=== PATIENT | male | born 1940 | race Caucasian/White ===

== ENCOUNTER 2023-06-09 09:12 | Inpatient (IN) | payer MEDICARE, OTHER ==
[~2023-06-09] VITALS: Ht 177.8 cm; Wt 83.6 kg
[2023-06-09 09:48] LABS: EOSINOPHILS 0.5 % (0-6); HEMATOCRIT 53.4 % (35.0-50.0); HEMOGLOBIN 17.8 g/dL (12.0-18.0); LYMPHOCYTES 4.3 % (24-44); MCH 31.9 (27-36); MCHC 33.3 g/dl (30-36); MCV 95.7 fl (81-99); MONOCYTES 5.3 % (0-12); NEUTROPHILS 89.9 % (39-80); PLATELET COUNT 145 K/uL (140-440); RBC 5.58 M/ul (4.3-5.7); RDW 15.8 (10.5-15.0)
[2023-06-09 10:22] LABS: ALBUMIN 1.7 g/dL (3.4-5.0); ALBUMIN/GLOBULIN RATIO 0.49 (1.1-2.4); ANION GAP 11.1 (7-21); BILIRUBIN, TOTAL 1.5 ng/dL (0.2-1.0); BUN/CREATININE RATIO 18.69 (6.0-28.6); CALCIUM 8.2 mg/dL (8.5-10.1); CREATININE, SERUM 1.23 mg/dL (0.70-1.30); POTASSIUM 4.1 mmol/L (3.5-5.1); PROTEIN, TOTAL 5.2 g/dL (6.4-8.2)
[2023-06-09] MEDS ORDERED: FUROSEMIDE 100 MG/10 ML VIAL IV ONE (11:15)
--- OUTSIDE RECORDS SUMMARY | 2023-06-09 11:16 | XMS ---
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 Elaine VISIT COUNT (12 MO.) [address] TOTAL 3 NOTE: Visits indicate total known visits. ED/UCC VISIT TRACKING (12 MO.) 06/09/2023 09:14 [facility] [place] TYPE: Emergency COMPLAINT: - SWOLLEN/WEEPING LEGS, MULTIPLE COMPLAINTS [facility] DIAGNOSES: - COVID-19 - cough 05/13/2023 13:[facility] [place] [facility] DIAGNOSES: - Heart failure, unspecified - Shortness of Breath - trouble breathing INPATIENT VISIT TRACKING (12 MO.) No inpatient visits to display in this time frame [email or web address]
[2023-06-09 11:42] LABS: BILIRUBIN, URINE POSITIVE (negative); BLOOD/HGB, URINE LARGE (Negative); KETONE, URINE NEGATIVE (Negative); LEUK ESTERASE, URINE TRACE (negative); NITRITE, URINE NEGATIVE (negative)
[2023-06-09 11:48] LABS: BACTERIA, URINE 4+ /hpf (negative); RED BLOOD CELLS, URINE 21-40 /hpf (0-5)
[2023-06-09 11:49] LABS: CASTS, URINE NONE SEEN \\lpf; CRYSTALS, URINE NONE SEEN (0-1+); EPITHELIAL CELLS, URINE SQUAMOUS 1+ /lpf (0-1+); WHITE BLOOD CELLS, URINE >50 /HPF (0-5)
[2023-06-09 11:50] LABS: COLLECTION TYPE, URINE CLEAN CATCH; REFLEX CULTURE, URINE Yes (No)
[2023-06-09] MEDS ORDERED: CEFTRIAXONE/SODIUM CHLORIDE 2 GM/100 ML PIGGYBACK IV ONE (12:15)
[2023-06-09 12:50] LABS: INFLUENZA B NAA NEGATIVE (NEGATIVE); RESPIRATORY SYNCYTIAL VIR NAA NEGATIVE (NEGATIVE)
[2023-06-09] MEDS ORDERED: ACETAMINOPHEN 325 MG TAB PO PRN (13:15)
[2023-06-09] MEDS ORDERED: ondansetron HCL 4 MG/2 ML VIAL IV PRN (13:15)
[2023-06-09] MEDS ORDERED: FUROSEMIDE40 MG PO (13:54)
[2023-06-09] MEDS ORDERED: POTASSIUM CHLO10 ME2 PO (13:54)
[2023-06-09] MEDS ORDERED: LOSARTAN POTASS25 MG PO (13:54)
[2023-06-09] MEDS ORDERED: ELIQUIS2.5 MG PO (13:54)
[2023-06-09 14:10] VITALS: BP 133/78
[2023-06-09] MEDS ORDERED: CITALOPRAM HBR10 MG PO (14:26)
[2023-06-09] MEDS ORDERED: LABETALOL HCL100 MG PO (14:28)
--- NOTE | 2023-06-09 14:33 | NUR ---
PT TO FLOOR WITH THIS RN AND FAMILY. SON IN LAW AND . 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 PT ABLE TO ANSWER SOME QUESTIONS BUT ANSWERED MOST DUE TO HEARING. 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 BED ALARM ON. DENIES WANTING FOOD, GIVEN ICE WATER. HAS SIGNIFICNT SORES IN MOUTH AND WOULD LIKE TO TRY MAGIC MOUTH WASH. ALERTED DR COOPER.
[2023-06-09] MEDS ORDERED: MAALOX/DIPHENHYDRAMINE/LIDOCAINE 1:1:1 BY VOLUME SUSP PO PRN (15:00)
--- NOTE | 2023-06-09 15:24 | NUR ---
PATIENT ALERT AND ORIENTED SITTING UP IN BED, DIFFICULTY HEARING. VERIFIED DEMOGRAPHICS WITH PATIENT. LIVES IN HOUSE WITH . HAS STAIRS THAT ARE "MORE DIFFICULTY THAN THEY USED TO BE, BUT WE MANAGE." STATES HE HAS A WALKER AND SHOWER CHAIR, BUT DOES NOT ALWAYS USE SHOWER CHAIR. STATES HE HAS NO OTHER DME. CONTINUES TO DRIVES SELF, THOUGH TRIES NOT TO DRIVE OFTEN. STATES HE HAS NO FINANCIAL ISSUES, NO ISSUES OBTAINING FOOD OR MEDICATIONS EITHER. DENIES NEEDS AT HOME AT THIS TIME. CALL LIGHT IN REACH. INSTRUCTED TO NOTIFY STAFF IF NEEDS ARISE. VERBALIZES UNDERSTANDING.
--- NOTE | 2023-06-09 16:03 | NUR ---
CHANGED PT DEPENDS WITH HELP OF CHRISTINA ISABEL. PT STOOD AT SIDE OF BED WITH FWW AND ASSISTANCE. CHANGED OUT CHUCKS ON BED THEY WERE WET TOO.
[2023-06-09] MEDS ORDERED: GLUCAGON,HUMAN RECOMBINANT 1 MG/ML VIAL SUB-Q PRN (16:15)
[2023-06-09] MEDS ORDERED: DEXTROSE 5% 1,000 ML IV PRN (16:15)
[2023-06-09] MEDS ORDERED: IBLOOD GLUCOSE TEST STRIP 1 EA TEST XX PRN (16:15)
[2023-06-09] MEDS ORDERED: DEXTROSE 50% 50 ML SYR IV PRN ×2 (16:15)
[2023-06-09] MEDS ORDERED: DAPTOmycin 500 MG/10 ML VIAL IV SCH (16:30)
[2023-06-09] MEDS ORDERED: IBLOOD GLUCOSE TEST STRIP 1 EA TEST VI SCH (17:00)
[2023-06-09] MEDS ORDERED: INSULIN LISPRO 100 UNIT/ML ML SUB-Q SCH (17:00)
--- NOTE | 2023-06-09 17:12 | NUR ---
PT WET THROUGH BEDDING AGAIN. CNAS CHANGING. ADMINISTERED SCHEDULED MEDS INCLUDING MAGIC MOUTH WASH.
[2023-06-09] MEDS ORDERED: ZINC OXIDE/GELATIN/GELATIN 1 BANDAGE BANDAGE TOP ONE (17:30)
[2023-06-09 17:47] VITALS: BP 117/68
--- NOTE | 2023-06-09 18:00 | NUR ---
Gave Pt refill of fresh water at 200 ml under fluid restriction. Gave Pt warm blanket. No other needs expressed by Pt.
[2023-06-09 20:49] VITALS: BP 133/84
[2023-06-09] MEDS ORDERED: MELATONIN 3 MG TAB PO PRN (21:00)
[2023-06-09] MEDS ORDERED: APIXABAN 2.5 MG TAB PO SCH (21:00)
--- NOTE | 2023-06-09 21:20 | NUR ---
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 abd soft. multiple bruising R arm and L arm, scratches arms, back and LE. Redness R back lower leg, edema 4+ ankle and 3+ hip down. scabbed areas in place, no dressing. L foot dressing in place, Dr Gibbs was here at change of shift, and dressing was completed. SL RAC, patent. tolerating liquids well, uses urinal. tele#[address], afib. denies CP. in room
[2023-06-09] MEDS ORDERED: PIPERACILLIN/TAZOBACTAM 3.375 GM in DEXTROSE 5% 100 ML IV SCH (22:00)
[2023-06-10] VITALS (9 sets, daily range): BP systolic 103–151; BP diastolic 58–96
--- NOTE | 2023-06-10 00:06 | NUR ---
FOOT CRADDLE PLACED IN PLACE, PT TEACAHING DONE, COOPERATATIVE, RECEPTIVE, NO QUESTIONS ASKED
--- NOTE | 2023-06-10 00:36 | NUR ---
RESTING, AWAKES EASILY, IV ABX INFUSING W/O PROBLEMS. FOOT CRADDLE IN PLACE
--- NOTE | 2023-06-10 02:00 | NUR ---
Pt used call light, up to bsc, voided and had small formed brown bm. Does own melly care. no c/o pain, or n/v. Independent from bed to BSC. IVF infusing w/o problems, no c/o adverse reaction to abx. SCD's in place. LE elevated. goes back to bed right away. fluids at bedside
--- NOTE | 2023-06-10 02:38 | NUR ---
on room air, fiddleing with tele, instructions to not to given, stated understanding. tele#[address], SVR to a fib. denies CP. continues to have moist non productive cough. lungs crackles at bases otherwise clear. tolerating fluid restrictions. Was incontinent of large amount of urine, attends changed, reash perineum and gluteal cleft noted, barrier cream applied. edema from hips to feet no changes, elevated, Ulna boot L leg, scabbed over areas no changes
[2023-06-10 05:42] LABS: BASOPHILS 0.2 % (0-2); EOSINOPHILS 0.2 % (0-6); HEMATOCRIT 52.7 % (35.0-50.0); HEMOGLOBIN 17.8 g/dL (12.0-18.0); LYMPHOCYTES 5.1 % (24-44); MCHC 33.8 g/dl (30-36); MCV 94.4 fl (81-99); MONOCYTES 6.2 % (0-12); NEUTROPHILS 88.3 % (39-80); PLATELET COUNT 154 K/uL (140-440); RBC 5.58 M/ul (4.3-5.7); RDW 15.6 (10.5-15.0)
[2023-06-10 06:01] LABS: ALBUMIN 1.6 g/dL (3.4-5.0); ALBUMIN/GLOBULIN RATIO 0.44 (1.1-2.4); ANION GAP 8.8 (7-21); BILIRUBIN, TOTAL 1.3 ng/dL (0.2-1.0); BUN/CREATININE RATIO 17.79 (6.0-28.6); CALCIUM 8.3 mg/dL (8.5-10.1); CREATININE, SERUM 1.18 mg/dL (0.70-1.30); MAGNESIUM 1.6 mg/dL (1.8-2.4); PHOSPHORUS, INORGANIC 2.9 mg/dL (2.5-4.9); POTASSIUM 3.8 mmol/L (3.5-5.1); PROTEIN, TOTAL 5.2 g/dL (6.4-8.2)
--- NOTE | 2023-06-10 06:52 | NUR ---
DR BRAVO IN ROOM, CHANGING DRESSING
--- NOTE | 2023-06-10 07:14 | NUR ---
VERBAL BEDSIDE REPORT RECEIVED FROM NINA MAGUIRE. STUDENT NURSE LEONELA, PRESENT FOR REPORT. SKIN ASSESSMENT PERFORMED WITH NINA MAGUIRE. PT AWAKE AND ALERT IN BED, AT BEDSIDE.
[2023-06-10] MEDS ORDERED: MAGNESIUM SULFATE 2 GM/50 ML BAG IV ONE (08:30)
--- NOTE | 2023-06-10 08:30 | NUR ---
PT SITS UP IN BED AND EATS BREAKFAST, NO REQUESTS AT THIS TIME. MEAL VOUCHER PROVIDED TO SPOUSE.
[2023-06-10] MEDS ORDERED: CITALOPRAM HYDROBROMIDE 20 MG TAB PO SCH (09:00)
--- NOTE | 2023-06-10 09:28 | NUR ---
PT UP TO RECLINER WITH 1PA AND FWW. PT TOLERATES ACTIVITY WELL.
--- NOTE | 2023-06-10 09:55 | NUR ---
ROUNDS. PT RECEIVING NURSING CARE. PROVIDED SILENT PRAYER.
--- NOTE | 2023-06-10 11:08 | NUR ---
PT IV TO SL. SITE PATENT, DRESSING C/D/I, NO REDNESS, SWELLING OR LEAKING NOTED. AT BEDSIDE. CALL LIGHT IN REACH. NO REQUESTS AT THIS TIME.
--- NOTE | 2023-06-10 11:15 | NUR ---
Spoke with pts , Ct. She states they are visiting for 10-14 more days then will return to their home in [place], [place]. She states pt require assist for dressing, ambulation, and most ADLS. She states they have atub shower and pt has not been showered for several months. She gives him sponge baths. We discussed pts diabetes and CHF. states they are 4 hours from [place] and would not be able to attend any education.I spoke with Larissa Allen, elementary educator and she will provide education to and pt. Cardiopulm nurse, Teresa, is gone for education. I will check for someone to provide CHF education as states they have never had education for CHF or Diabetes. She denies need for any DME at this time. Plans on return to home in approx 14 days. Will go to daughter's home while here in town.
[2023-06-10] MEDS ORDERED: MUCINEX600 MG PO (11:45)
[2023-06-10] MEDS ORDERED: ADULT LOW DOSE81 MG PO (11:45)
--- NOTE | 2023-06-10 11:45 | NUR ---
MED REC COMPLETE
[2023-06-10] MEDS ORDERED: PHARMACY RENAL DOSE ADJUSTMENT 1 DOSE MISC PO SCH (12:00)
--- NOTE | 2023-06-10 12:22 | NUR ---
PT INCONTINENT OF URINE. DUTCH CARE PROVIDED. NOTED MOIST RED SKIN IN BILATERAL GROIN AND DISTAL TO SCROTUM. NOTED REDNESS WITH PIN POINT RED SATELITE LESIONS. SUSPECTED INTERTRIGO AND IRRITANT CONTACT DERMATITIS. DESENEX ORDERED FOR BILATERAL GROIN PER NIO.
--- NOTE | 2023-06-10 14:33 | NUR ---
PT UP TO BATHROOM WITH 1PA AND FWW. PASSES MEDIUM BM. PT BACK TO BED, TOLERATES ACTIVITY WELL. NEW BREIF AND DUTCH CARE PROVIDED. BARRIER CREAM APPLIED. STATIC WAFFLE OVERALY APPLIED OVER BEDSURFACE. IV FLUSHED WITH 5CC OF NS, NO PAIN, REDNESS, SWELLING OR LEAKING NOTED. INFUSION STARTED ORDERED, SEE EMAR. PT RESTS IN BED IN SEMIFOWLERS, CALL LIGHT IN REACH, BLE ELEVATED. NO REQUESTS AT THIS TIME.
[2023-06-10] MEDS ORDERED: FUROSEMIDE 40 MG/4 ML VIAL IV SCH (17:31)
--- NOTE | 2023-06-10 17:58 | NUR ---
LASIX RECEIVED ORDERED, SEE EMAR. IV FLUSHED WITH 5CC OF NS FOLLOWED BY LASIX AND THEN 5CC OF NS. IV SITE PATENT, DRESSING C/D/I, NO REDNESS, SWELLING OR LEAKING NOTED. PT RESTS IN BED AWAKE AND ALERT, WATCHES TV, SPOUSE AT BEDSIDE. CALL LIGHT IN REACH, BED ALARM ON. NO REQUESTS AT THIS TIME.
--- NOTE | 2023-06-10 18:54 | NUR ---
PROVIDED WRITTEN EDUCATION MATERIALS ON DM DIET TO PT AND PT'S SPOUSE. DISCUSSED DIABETIC DIET AND BLOOD SUGAR EXTENSIVELY. SPOUSE IS EAGER AND READY TO LEARN. PT PARTICIPATES IN LEARNING BUT REQUIRES REINFORCEMENT. SPOUSE WOULD LIKE TO CONTINUE TO LEARN. ALL QUESTIONS ANSWERED AT THIS TIME.
[2023-06-10] MEDS ORDERED: MICONAZOLE NITRATE 1 EA BTL TOP SCH (21:00)
--- NOTE | 2023-06-10 21:25 | NUR ---
PATIENT IS INCONTINENT. WIPED AND DID DUTCH CARE. CHANGED DRAW SHEET, CHUX AND FRESH ATTENDS AND NYSTATIN POWDER APPLIED. FRESH GOWN PLACED. PATIENT BOOSTED UP AND REPOSITIONED. IS LAYING ON THE COUCH. BED ALARM ON FOR SAFETY.
--- NOTE | 2023-06-10 22:59 | NUR ---
RESTING, EYES CLOSED, NO S/SX PAIN, TELE#[address], AFIB WITH MULTIFORM PVC'S. IV ABX INFUSING. ATTENDS DRY, EDEMA FROM HIPS TO FEET NO CHANGES, RED PERIAREA POWDER APPLIED EARLIER WHEN CHANGING ATTENDS. DRESSING /ULNA BOOT TO BOTH LE IN PLACE, LEGS ELEVATED, FOOT CRADDLE IN PLACE. SCABBED OVER AREAS AND BRUISINGS NO CHANGES. ROOMING IN
--- NOTE | 2023-06-10 23:55 | NUR ---
THIS RN TO ASSUME CARE OF PATIENT. REPORT RECIEVED FROM OFF GOING RN. PATIENT RESTING IN BED. THIS RN EDUCATED PATIENT CARDIOLOGY PHYSICIAN ASSISTANT LIGHT. PATIENT HAS NO FURTHER NEEDS. CALL LIGHT IN REACH.
[2023-06-11] VITALS (7 sets, daily range): BP systolic 114–142; BP diastolic 58–90
--- NOTE | 2023-06-11 02:40 | NUR ---
PATIENT RESTING IN BED. PATIENT REPORTS PAIN IN BILAT HEELS. HEEL PROTECTORS WERE OFFERED AND PUT IN PLACE. PATIENT REPORTS "THIS FEELS BETTER". PATIENT EDUCATED TO CALL IF THE PAIN CONTINUES. NO FURTHER NEEDS. CALL LIGHT IN REACH. ASSESSMENT COMPLETE. BLE UNNA BOOTS C/D/I. PATIENT BLE PAINFUL TO THE TOUCH.
--- NOTE | 2023-06-11 04:23 | NUR ---
PATIENT RESTING IN BED ON BACK. RESPIRATIONS EVEN AND UNLABORED. HEEL PROTECTORS IN PLACE. CALL LIGHT IN REACH.
[2023-06-11 05:51] LABS: BASOPHILS 0.2 % (0-2); EOSINOPHILS 0.3 % (0-6); HEMATOCRIT 54.6 % (35.0-50.0); HEMOGLOBIN 18.1 g/dL (12.0-18.0); LYMPHOCYTES 6.8 % (24-44); MCH 31.4 (27-36); MCV 95.2 fl (81-99); MONOCYTES 6.7 % (0-12); PLATELET COUNT 144 K/uL (140-440); RBC 5.74 M/ul (4.3-5.7); RDW 15.5 (10.5-15.0)
[2023-06-11 06:07] LABS: ALBUMIN 1.6 g/dL (3.4-5.0); ALBUMIN/GLOBULIN RATIO 0.44 (1.1-2.4); ANION GAP 10.7 (7-21); BILIRUBIN, TOTAL 1.4 ng/dL (0.2-1.0); BUN/CREATININE RATIO 19.68 (6.0-28.6); CALCIUM 8.2 mg/dL (8.5-10.1); CREATININE, SERUM 1.27 mg/dL (0.70-1.30); POTASSIUM 3.7 mmol/L (3.5-5.1); PROTEIN, TOTAL 5.2 g/dL (6.4-8.2)
--- NOTE | 2023-06-11 06:38 | NUR ---
IV PLACED IN LEFT FOREARM. IV ABX RESUMED. CLEAN GOWN PROVIDED. NO FURTHER NEEDS.
--- NOTE | 2023-06-11 06:43 | NUR ---
IV ABX INFUSING PER ORDER. PATIENT REPORTS NO FURTHER NEEDS. CALL LIGHT IN REACH.
--- NOTE | 2023-06-11 07:25 | NUR ---
RECEIVED REPORT FROM NINA GELLER. PT AWAKE IN BED READING, AT THE BEDSIDE. PT STATES OUTSIDE OF LEFT HEEL IS PAINFUL, REPOSITIONED, PT STATES THIS POSITION "FEELS A BIT BETTER". PT STATES NO FURTHER NEEDS AT THIS TIME, CALL LIGHT WITHIN REACH, BED RAILS UP.
--- NOTE | 2023-06-11 09:28 | NUR ---
FAX REQUEST SENT TO [facility] FOR ECHO RESULTS
--- NOTE | 2023-06-11 10:05 | NUR ---
PT AWAKE IN BED, AT THE BEDSIDE. PT DENIES PAIN AT THIS TIME, STATES HIS "SCIATICA PAIN" IS INTERMITTENT AND STATES HE DOES NOT TYPICALLY TAKE ANYTHING AT HOME FOR THIS. PT ORIENTED TO SELF AND DATE, ANSWERS "A [facility] IN [place]" WHEN ASKED ABOUT PLACE, PT REORIENTED. PT CONTINUES TO HAVE WEAKNESS IN HIS BLE, UNNA BOOTS ARE C/D/I, HEEL PROTECTORS IN PLACE ON BLE. LUNG SOUNDS CLEAR, DIMINISHED IN THE LOWER LOBES. BLE EDEMA IMPROVING, +1 IN HIPS TO KNEES, +2 IN BLE, UNNA BOOTS AND HEEL PROTECTORS IN PLACE, BLE ELEVATED ON PILLOWS. PT CONTINUES TO BE ON 60G CARB AND 2G SODIUM DIET, TOLERATING WELL. DEPENDS AND PAD SATURATED, NEW DEPENDS IN PLACE. REDNESS ON BUTTOCKS AND SCROTUM REMAIN, POWDER APPLIED ORDERED. LEFT TOE WOUND REMAINS COVERED, DRESSING C/D/I. PT STATES NO FURTHER NEEDS AT THIS TIME. CALL LIGHT WITHIN REACH, PT ON RIGHT SIDE SUPPORTED BY PILLOWS, BED RAILS UP.
--- NOTE | 2023-06-11 10:38 | NUR ---
REVEIWED AND DISCUSSED CHF EDUCATION PACKET EXTENSIVELY WITH PT'S SPOUSE. SPOUSE VERBALIZES UNDERSTANDING OF THE GREEN, YELLOW AND RED ZONE CONCEPT AND TRACKING TOOLS. VERBALIZES UNDERSTANDING OF SALT RESTRICTIONS AND IMPORTANCE OF DAILY WEIGHTS AND MONITORING LIMB SWELLING. ALL QUESTIONS ANSWERED AT THIS TIME. SPOUSE WOULD CONTINUE TO BENEFIT FROM REINFORCMENT OF EDUCATION. NUTRITION CONSULT PENDING.
--- NOTE | 2023-06-11 11:15 | NUR ---
Spoke with pts . She is now stating she is unable to care for pt at her daughter's home. She and spouse both work and will not be able to assist her. She would now like placement to a SNF for rehab. They would like to stay in [place]. Let her know this is not possible at this time. Our SNF is full and do not anticipate open beds until the end of next week. She requests the closest. Gave list of SNFs. Let her know [facility] in [place] does not have beds open either. I will contact [facility] and [facility] in [place] and send chart.
--- NOTE | 2023-06-11 11:21 | NUR ---
REFERRAL PACKET FOR PLACEMENT FAXED TO [facility] AND [facility].
--- NOTE | 2023-06-11 12:45 | NUR ---
Notified by [facility] they do not have beds.
--- NOTE | 2023-06-11 12:52 | NUR ---
Pt reporting 4/10 pain. No SOB, no lightheadedness, no chest pain. Pt did not need anything. Pt sitting in recliner. Pt educated on callin before transfering to the bed. TV remote within reach. Call light within reach.
--- NOTE | 2023-06-11 13:00 | NUR ---
Notified by Argenis at [facility] they can accept Samuel on Friday at [address] Maxwell updated. Notified pts . [facility] are requesting documentation of initial covid test and treatment. Updated we are waiting on the chart from the [facility]. will transport pt on Friday.
--- NOTE | 2023-06-11 19:30 | NUR ---
REPORT RECIEVED FROM DAY SHIFT RN. PATIENT RESTING IN BED WITH EYES CLOSED. RESPIRATIONS EVEN AND UNLABORED. CALL LIGHT IN REACH.
--- NOTE | 2023-06-11 20:30 | NUR ---
VS COMPLETED, BS COMPLETED. PT SLEEPY BUT WAKES, DOES ASK WHAT HIS AGE IS AND HOW OLD HE IS SUPPOSE TO BE, WANTED TO KNOW IF THEY WERE GOING HOME, CONCERNED ABOUT HIS "CONFUSION". WANTS STAFF TO KEEP "CLOSE EYE" ON HIM, VS STABLE, AFEBRILE. PRIMARY RN AWARE WELL. EXPLAINED TO PT THAT HE WAS GOING TO GO TO REHAB, GET SOME PT, STRENGTHING.
--- NOTE | 2023-06-11 20:49 | NUR ---
PATIENT RESTING IN BED. SCHEDULED MEDCICATIONS ADMINISTERED. ASSESSMENT COMPLETE. PATIENT HAS NO COMPLAINTS OF PAIN. BLE DRESSINGS C/D/I. BILAT HEEL PROTECTORS IN PLACE. IV FLUSHED AND WNL. PATIENT HAS NO FURTHER NEEDS. CALL LIGHT IN REACH. AT BEDSIDE.
[2023-06-11] MEDS ORDERED: LABETALOL HCL 100 MG TAB PO SCH (21:00)
--- NOTE | 2023-06-11 22:17 | NUR ---
PATIENT REPOSITIONED IN BED WITH 2 PILLOWS UNDER RIGHT SIDE OF HIP. PATIENT HAS NO FURTHER NEEDS. AT BEDSIDE. CALL LIGHT IN REACH.
--- NOTE | 2023-06-11 22:29 | NUR ---
PATIENT RESTING IN BED. NEW BAG IV ABX INFUSING PER ORDER. NO FURTHER NEEDS. CALL LIGHT IN REACH.
--- NOTE | 2023-06-12 00:15 | NUR ---
PATIENT INCONTINENT OF URINE. BREIF AND RANGEL REPLACED AFTER DUTCH CARE PROVIDED. POWDER PLACED ON DUTCH AREA. PATIENT REPOSTIONED IN BED. RESTING ON COUCH IN ROOM. NO FURTHER NEEDS. CALL LIGHT IN REACH.
--- NOTE | 2023-06-12 01:12 | NUR ---
PATIENT INCONTINENT OF STOOL. PATIENT UP TO BATHROOM TO VOID WITH 2P SBA AND FWW. BARRIER CREAM APPLIED TO SACRUM AFTER DUTCH CARE PROVIDED AND NEW BREIF IN PLACE. PATIENT BACK TO BED. BED ALARM ON FOR SAFETY. IN CHAIR AT BEDSIDE. PATIENT HAS NO FURTHER NEEDS. CALL LIGHT IN REACH.
[2023-06-12 01:40] VITALS: BP 122/81
--- NOTE | 2023-06-12 01:41 | NUR ---
PATIENT RESTING IN BED WITH LIGHTS OFF WATCHING TV. VS AND I&Os OBTAINED AND RECORDED. NO FURTHER NEEDS. CALL LIGHT IN REACH.
--- NOTE | 2023-06-12 03:02 | NUR ---
BED ALARM SOUNDING, PT JUST ROLLED OVER, EYES CLOSED, RESP EVEN AND UNLABORED. BED ALARM TURNED ON TO LESS SENSITIVE. ON COUCH SLEEPING.
--- NOTE | 2023-06-12 04:24 | NUR ---
PATIENT RESTING IN BED ON BACK WITH EYES CLOSED. RESPIRATIONS EVEN AND UNLABORED. LAYING ON COUCH. CALL LIGHT IN REACH.
[2023-06-12 05:54] LABS: HEMOGLOBIN 18.2 g/dL (12.0-18.0); MCHC 33.7 g/dl (30-36); PLATELET COUNT 154 K/uL (140-440); RBC 5.68 M/ul (4.3-5.7); RDW 15.4 (10.5-15.0)
[2023-06-12 06:12] LABS: ALBUMIN 1.4 g/dL (3.4-5.0); ALBUMIN/GLOBULIN RATIO 0.38 (1.1-2.4); ANION GAP 12.5 (7-21); BILIRUBIN, TOTAL 1.3 ng/dL (0.2-1.0); BUN/CREATININE RATIO 20.93 (6.0-28.6); CREATININE, SERUM 1.29 mg/dL (0.70-1.30); MAGNESIUM 1.8 mg/dL (1.8-2.4); POTASSIUM 3.5 mmol/L (3.5-5.1); PROTEIN, TOTAL 5.1 g/dL (6.4-8.2)
[2023-06-12 06:13] VITALS: BP 140/71
[2023-06-12 06:21] LABS: LYMPHOCYTES, MANUAL DIFF 6; MONOCYTES, MANUAL DIFF 2; NEUTROPHILS, MANUAL DIFF 92
--- NOTE | 2023-06-12 06:35 | NUR ---
PATIENT RESTING IN BED. NEW BAG IV FLUID INFUSING PER ORDER. PATIENT HAS NO FURTHER NEEDS. CALL LIGHT IN REACH.
--- NOTE | 2023-06-12 06:39 | NUR ---
DAILY STANDING WEIGHT OBTAINED AND RECORDED. PATIENT BACK TO BED. BED ALARM ON FOR SAFETY. BILAT HEEL PROTECTORS IN PLACE.
--- NOTE | 2023-06-12 07:50 | NUR ---
RECEIVED REPORT FROM NINA GELLER. PT AWAKENS TO RN IN ROOM, STATES NO NEEDS AT THIS TIME. PHYSICAL THERAPY TO THE BEDSIDE. CALL LIGHT WITHIN REACH.
--- NOTE | 2023-06-12 08:25 | NUR ---
Pt up in chair eating breakfast. Fmily in the room. bed linens changed
[2023-06-12] MEDS ORDERED: LOSARTAN POTASSIUM 25 MG TAB PO SCH (09:00)
--- NOTE | 2023-06-12 10:00 | NUR ---
PT AWAKE IN BED, AT THE BEDSIDE. PT DENIES PAIN AT THIS TIME. PT A+O X3, CONTINUES TO BE FORGETFUL AT TIMES. PT CONTINUES TO HAVE WEAKNESS IN BLE, NO NUMBNESS OR TINGLING PER PT. PT ATTEMPTS TO GET UP ON HIS OWN AT TIMES, BED ALARM ON FOR SAFETY. CONTINUES TO AMBULATE WITH 1-2PA AND FWW. UNNA BOOTS CONTINUE TO BE IN PLACE, HEEL PROTECTORS IN PLACE. LUNG SOUNDS DIMINISHED IN BLL. TELE REMAINS IN PLACE, NO CHANGE IN CARDIAC ASSESSMENT FROM PREVIOUS SHIFT. EDEMA IN BLE IMPROVING 1+ IN BLE AND TRACE IN HANDS. PT CONTINUES TO LEARN ABOUT DIABETIC AND LOW SODIUM DIET OPTIONS, TOLERATING 2G SODIUM DIET AND 60G CARB DIET WELL. NO CHANGES IN SKIN FROM PREVIOUS SHIFT. PT STATES NO NEEDS AT THIS TIME, TAKES PO MEDICATIONS WITHOUT DIFFICULTY. CALL LIGHT WITHIN REACH, BED ALARM ON FOR SAFETY.
--- NOTE | 2023-06-12 11:13 | NUR ---
UR NOTE [facility]CG HEART FAILURE (ISC) 06/09/23 MET CLINICAL INDICATIONS FOR ADMISSION TO INPATIENT CARE GL DAY 1
--- NOTE | 2023-06-12 11:20 | NUR ---
Pt sleeping, not in room. Pt was discussed in 829 meeting and plan remains for tn to [place] [facility] tomorrow.
--- NOTE | 2023-06-12 12:51 | NUR ---
CHECKED IN WITH PT AND TO ADDRESS ANY ADDITIONAL DIABETES EDUCATION QUESTIONS OR CONCERNS FOLLOWING YESTERDAY'S CONSULT. PT WAS SLEEPY AND DENIED ANY NEEDS AT THIS TIME.
[2023-06-12 13:44] VITALS: BP 115/65
--- NOTE | 2023-06-12 13:46 | NUR ---
PT INCONTINENT. PT DRINKING ENSURE. PT IN ROOM. CALL LIGHT IN REACH.
--- NOTE | 2023-06-12 14:05 | NUR ---
PT HAS INCONTINENT VOID. DEPENDS, PAD, LINENS, AND CHUX CHANGED. PT STATES NO FURTHER NEEDS AT THIS TIME, CALL LIGHT WITHIN REACH, HEEL PROTECTORS IN PLACE, AT THE BEDSIDE.
[2023-06-12 14:55] VITALS: BP 115/65
--- NOTE | 2023-06-12 15:20 | NUR ---
RT COLLECTED RAPID COVID 19 SWAB AT THIS TIME WITH NO COMPLICATIONS.
--- NOTE | 2023-06-12 16:35 | NUR ---
FURNITURE REPAIRER CHANGED PT BRIEF. BY URINATED AND HAD A BM. FURNITURE REPAIRER PUT HIS ON THE BOARD IN PT ROOM. WILL BE CHARTED WITH I AND O'S. PT STATES NO COMPLAINTS. CALL LGT WITHIN REACH
--- NOTE | 2023-06-12 16:43 | NUR ---
PT HAS FAMILY AT THE BEDSIDE. THIS RN NOTIFIED BY CHRISTINA VILLALTA THAT PT HAD A BM AND DEPENDS WERE CHANGED. PT STATES NO NEEDS AT THIS TIME, CALL LIGHT WITHIN REACH.
--- NOTE | 2023-06-12 17:23 | NUR ---
Was able to speak with pts and daughter. They plan to transport pt to [facility] at 12 N tomorrow. Gave infor on what to take for clothing and personal items. has questions if pt could transfer back to [facility]. I told her Yes if and when a bed comes open if they are willing to accept this pt. She will need to call them. Gave the daughter directions to [facility]. I faxed notes from [facility] with info for pts +covid test on the 15 and paxlovid treatment to Argenis at [facility].
--- NOTE | 2023-06-12 17:24 | NUR ---
PT TRANSITIONED FROM THE BED TO THE TOILET TO USE THE RESTROOM. PT URINATED, DISCOTHEQUE DANCER RECORDED THIS ON THEIR I AND O CHART. NO FURTHER COMPLAINTS. CNE REFILLED PT WATER. CALL LIGHT WITHIN REACH. PT SPOUSE IN THE ROOM.
--- NOTE | 2023-06-12 18:05 | NUR ---
CNAs AT THE BEDSIDE, PT STATES NO CURRENT NEEDS AT THIS TIME. CALL LIGHT WITHIN REACH, AT THE BEDSIDE.
[2023-06-12 18:26] VITALS: BP 107/65
--- NOTE | 2023-06-12 18:56 | NUR ---
A BATON TWIRLER HELPED TO CHANGE BRIEF AND HELPED CHANGE THE BOTTOM PADDDING WELL. PATIENT WAS GOOD WITH HELPING TO TURN TO HIS SIDE.
--- NOTE | 2023-06-12 19:21 | NUR ---
REPORT RECIEVED FROM DAY SHIFT RN. PATIENT RESTING IN BED. RESPIRATIONS EVEN AND UNLABORED. SITTING ON COUCH IN ROOM. NO FURTHER NEEDS. CALL LIGHT IN REACH.
[2023-06-12 19:49] VITALS: BP 120/71
--- NOTE | 2023-06-12 20:15 | NUR ---
PATIENT INCONTINENT OF URINE. NEW LINDA AND RANGEL IN PLACE. BARRIER CREAM APPLIED TO SACRUM AFTER DUTCH CARE PROVIDED. NYSTATIN POWDER PLACED ON DUTCH AREA. AT BED SIDE. NO FURTHER NEEDS. CALL LIGHT IN REACH.
--- NOTE | 2023-06-12 20:50 | NUR ---
PATIENT RESTING IN BED. VS AND I&Os OBTAINED AND RECORDED. SCHEDULED MEDICATIONS ADMINISTERED. ASSESSMENT COMPLETE. BILAT UNNA BOOTS C/D/I. HEEL PROTECTORS IN PLACE. IV FLUSHED AND WNL. PATIENT HAS NO FURTHER NEEDS. CALL LIGHT IN REACH.
--- NOTE | 2023-06-12 21:15 | NUR ---
PATIENT INCONTINENT OF URINE AND STOOL. NEW BREIF PLACED AFTER DUTCH CARE PROVIDED. BARRIER CREAM APPLIED TO SACRUM. NYSTATIN POWDER APPLIED TO DUTCH AREA. PATIENT HAS NO FURTHER NEEDS. CALL LIGHT IN REACH.
--- NOTE | 2023-06-12 22:12 | NUR ---
NEW BAG IV FLUID INFUSING PER ORDER. CALL LIGHT IN REACH. AT BEDSIDE.
--- NOTE | 2023-06-12 23:21 | NUR ---
BED ALARM SOUNDING. THIS RN QUICKLY WENT INTO ROOM. PATIENT RESTING AND REPOSITIONED SELF IN BED WHICH TRIGGERED THE ALARM. NO FURTHER NEEDS. BED ALARM ON FOR SAFETY. CALL LIGHT IN REACH. RESTING ON COUCH.
--- NOTE | 2023-06-13 00:17 | NUR ---
PATIENT RESTING IN BED ON BACK WITH EYES CLOSED. RESPIRATIONS EVEN AND UNLABORED. CALL LIGHT IN REACH. RESTING ON COUCH.
[2023-06-13 01:01] VITALS: BP 126/77
--- NOTE | 2023-06-13 01:02 | NUR ---
PATIENT RESTING IN BED WITH EYES CLOSED. PATIENT AWAKENS EASILY. VSS AND RECORDED. PATIENT HAS NO FURTHER NEEDS. CALL LIGHT IN REACH. RESTING IN ROOM ON COUCH.
--- NOTE | 2023-06-13 02:41 | NUR ---
PATIENT RESTING IN BED ON BACK WITH EYES CLOSED. RESPIRATIONS EVEN AND UNLABORED. CALL LIGHT IN REACH.
--- NOTE | 2023-06-13 03:18 | NUR ---
IV PUMP ALARMING. PATIENT RESTING IN BED WITH EYES CLOSED. RESPIRATIONS EVEN AND UNLABORED. IV ABX COMPLETED. PATIENT SL AT THIS TIME. CALL LIGHT IN REACH.
--- NOTE | 2023-06-13 04:35 | NUR ---
PATIENT RESTING IN BED ON BACK WITH EYES CLOSED. RESPIRATIONS EVEN AND UNLABORED. CALL LIGHT IN REACH.
[2023-06-13 05:49] LABS: BASOPHILS 0.8 % (0-2); EOSINOPHILS 0.2 % (0-6); HEMATOCRIT 52.3 % (35.0-50.0); HEMOGLOBIN 17.9 g/dL (12.0-18.0); LYMPHOCYTES 6.9 % (24-44); MCH 32.1 (27-36); MCHC 34.3 g/dl (30-36); MCV 93.6 fl (81-99); MONOCYTES 5.7 % (0-12); NEUTROPHILS 86.4 % (39-80); PLATELET COUNT 166 K/uL (140-440); RBC 5.59 M/ul (4.3-5.7); RDW 15.4 (10.5-15.0)
[2023-06-13 05:50] VITALS: BP 104/72
--- NOTE | 2023-06-13 05:55 | NUR ---
WITH ASSISTANCE OF SECOND RN, INCONT CARE PROVIDED, BEDDING STRAIGHTENED, ADJUSTED IN BED. PT VOICING STRESS ABOUT THE IMPENDING TRANSFER TO SNF TODAY. PT DRINKING JUICE, STATES HELPS HIS "DRY MOUTH". BED ALARM PLACED, BED IN LOWEST POSITION.
[2023-06-13 06:07] LABS: ALBUMIN 1.5 g/dL (3.4-5.0); ALBUMIN/GLOBULIN RATIO 0.42 (1.1-2.4); ANION GAP 12.1 (7-21); BILIRUBIN, TOTAL 1.3 ng/dL (0.2-1.0); BUN/CREATININE RATIO 22.38 (6.0-28.6); CALCIUM 8.1 mg/dL (8.5-10.1); CREATININE, SERUM 1.34 mg/dL (0.70-1.30); MAGNESIUM 1.8 mg/dL (1.8-2.4); POTASSIUM 3.1 mmol/L (3.5-5.1); PROTEIN, TOTAL 5.1 g/dL (6.4-8.2)
--- NOTE | 2023-06-13 06:30 | NUR ---
PATIENT RESTING IN BED. STANDING BED WEIGHT OBTAINED AND RECORDED. PATIENT JEROME WELL. PATIENT HAS NO FURTHER NEEDS. CALL LIGHT IN REACH. BED ALARM ON FOR SAFETY. IN ROOM AT BEDSIDE. THIS RN PROVIDED WITH COFFEE.
--- NOTE | 2023-06-13 07:49 | NUR ---
PT RESTING IN BED WITH EYES CLOSED WHEN GETTING REPORT FROM NIGHT RN. IV ABX INFUSING AT THIS TIME. CALL LIGHT WITHIN REACH. BED ALARM IN PLACE.
[2023-06-13] MEDS ORDERED: POTASSIUM CHLORIDE 40 MEQ,LIDOCAINE HCL 1% 40 MG in DEXTROSE 5% 500 ML IV ONE (08:30)
[2023-06-13 09:01] VITALS: BP 120/81
[2023-06-13 09:03] VITALS: BP 120/81
--- NOTE | 2023-06-13 09:55 | NUR ---
ENTERED PATIENT ROOM TO ASSIST RN WITH MEDICATIONS. PATIENT SITTING IN BED STATED THAT HE WANTED TO WALK TO THE BATHROOM. ASSISTED HIM TO THE BATHROOM WITH FRONT WHEEL WALKER. 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 PATIENT VOIDED 100MMLS INTO HAT. BARRIER CREAM AND POWDER APPLIED. PATIENT IS NOW SITTING IN CHAIR WITH CALL LIGHT AND PERSONAL BELONGINGS IN REACH.
[2023-06-13] MEDS ORDERED: POTASSIUM CHLORIDE 10 MEQ TABCR PO ONE (10:00)
[2023-06-13] MEDS ORDERED: HUMALOG100 UNITS/ SUB-Q (10:39)
[2023-06-13] MEDS ORDERED: BACTRIM DS TAB1 EACH PO (10:40)
[2023-06-13 11:25] VITALS: BP 97/60
--- NOTE | 2023-06-13 11:31 | NUR ---
PT UP IN THE CHAIR EATING AN EARLY LUNCH. PRESENT IN THE ROOM. CBG 190, SS INSULIN GIVEN ORDERED. IV REMOVED. REPORT CALLED TO [facility]. CALL LIGHT WITHIN REACH. ALL PT CARE NEEDS MET AT THIS TIME.
== END 2023-06-13 12:00 | disposition home or self-care (01) | DRG 291 ==
LOC: ED 09:12 → MS 13:10
PROVIDERS: Emergency Medicine; ADMIT Family Medicine; ATTEND Family Medicine
PROC: 0HBNXZZ Excision of Left Foot Skin, External Approach (ICD-10-PCS; principal; 2023-06-09)
DX: I11.0 Hypertensive heart disease with heart failure (principal); I50.33 Acute on chronic diastolic (congestive) heart failure; U07.1 COVID-19; N39.0 Urinary tract infection, site not specified; L03.116 Cellulitis of left lower limb; L02.416 Cutaneous abscess of left lower limb; I87.313 Chronic venous hypertension (idiopathic) with ulcer of bilateral lower extremity; L97.221 Non-pressure chronic ulcer of left calf limited to breakdown of skin; L97.211 Non-pressure chronic ulcer of right calf limited to breakdown of skin; E80.6 Other disorders of bilirubin metabolism; E11.65 Type 2 diabetes mellitus with hyperglycemia; K13.79 Other lesions of oral mucosa; E87.6 Hypokalemia; I89.0 Lymphedema, not elsewhere classified; L97.522 Non-pressure chronic ulcer of other part of left foot with fat layer exposed; E83.42 Hypomagnesemia; I48.91 Unspecified atrial fibrillation; Z86.73 Personal history of transient ischemic attack (TIA), and cerebral infarction without residual deficits; Z90.49 Acquired absence of other specified parts of digestive tract; Z98.890 Other specified postprocedural states; Z79.01 Long term (current) use of anticoagulants; Z79.899 Other long term (current) drug therapy
CPT/HCPCS: 36415; 51798; 71046; 80053; 81001; 82553; 83036; 83605; 83735; 83880; 84100; 85025; 85060; 87040; 87077; 87088; 87186; 87502; 96365; 96375; 97110; 97162; 97165; 97530; 99285-25; A9270; J0696; J0878; J1815; J1940; J2543; J3475; U0002